=== PATIENT | male | born 1940 | race Caucasian/White ===

== ENCOUNTER 2017-03-23 08:54 | Observation (INO) | payer OTHER ==
[~2017-03-23] VITALS: Ht 167.6 cm; Wt 78.0 kg
--- NOTE | 2017-03-23 09:07 | ED CARDIAC/CP/PALPITATIONS ---
History of Present Illness General Chief Complaint: Chest Pain Stated Complaint: CP Source: patient, family, old records Exam Limitations: no limitations Allergies Coded Allergies: amoxicillin (Intermediate, RASH 03/23/17) Reconcile Medications Aspirin (Aspirin*) 81 MG TAB.CHEW 1 TAB PO DAILY HEART HEALTH (Reported) Atorvastatin Calcium 80 MG TABLET 1 TAB PO DAILY CHOLESTEROL (Reported) Metoprolol Succinate 50 MG TAB.ER.24H 1 TAB PO DAILY HEARTRATE (Reported) Omeprazole 20 MG CAPSULE.DR 1 TAB PO DAILY AC GERD Please stop taking this medication after 4weeks. Triage Note: 76 YEAR OLD MALE TO TRIAGE WITH COMPLAINTS OF DIFFUSE CP THAT STARTED AROUND 0430 THIS AM AND LASTED INTILL 7 AM, PT HAS HISTORY OF PR IN 2015 AND WAS CONCERNED, PAIN FREE AT THIS TIME AND DENIES SOB OR DIAPHORESIS AT TIME OF EPISODE. Triage Nurses Notes Reviewed? yes Onset: Abrupt Duration: hour(s): Timing: single episode today Quality/Severity: burning Location: substernal Activities at Onset: rest HPI: 76-year-old male with history of prior myocardial infarction status post stents in 2014 on aspirin 81 mg presents emergency department complaining of substernal chest pain beginning at 0400 this morning. Patient states that she woke up and began thinking about tasks to do today when chest pain onset began. Chest pain described as burning, substernal radiating to bilateral anterior chest. Patient states the chest pain resolves around 0700 on its own. He is currently chest pain-free. The patient had no associated dyspnea or nausea. Patient states that this chest pain feels more mild compared to his previous PR. The patient denies dyspnea, headache, abdominal pain, recent illness, fevers, chills, presyncope. (Tonya BETANCOURT,Evelin Estes) Vital Signs & Intake/Output Vital Signs & Intake/Output Vital Signs Date Time Temp Pulse Resp B/P B/P Pulse O2 O2 Flow FiO2 Mean Ox Delivery Rate 03/24 0941 72 110/70 03/24 0644 98.4 68 20 134/74 95 Room Air 03/23 2140 98.3 66 20 110/70 96 03/23 1949 68 122/88 ED Intake and Output 03/24 0000 03/23 1200 Intake Total 120 Output Total 400 Balance -280 Intake, Oral 120 Output, Urine 400 Patient 172 lb 172 lb Weight (Manjula ATWOOD,Desean Weiner) Past History Travel History Traveled to [place] past 21 day No Medical History Any Pertinent Medical History? see below for history Neurological: NONE EENT: NONE Cardiovascular: myocardial infarction Respiratory: NONE Gastrointestinal: NONE Hepatic: NONE Renal: NONE Musculoskeletal: NONE Psychiatric: NONE Endocrine: NONE Cancer(s): NONE Surgical History Surgical History: non-contributory Psychosocial History What is your primary language R[place]an Tobacco Use: Never used ETOH Use: denies use Illicit Drug Use: denies illicit drug use Family History Family History, If Any: FATHER, . Relation not specified for: *No pertinent family history Hx Contributory? No (Evelin Cantu) Review of Systems Review of Systems Constitutional: Reports: no symptoms. EENTM: Reports: no symptoms. Respiratory: Reports: no symptoms. Cardiovascular: Reports: see HPI. GI: Reports: no symptoms. Genitourinary: Reports: no symptoms. Musculoskeletal: Reports: no symptoms. Skin: Reports: no symptoms. Neurological/Psychological: Reports: no symptoms. Hematologic/Endocrine: Reports: no symptoms. Immunologic/Allergic: Reports: no symptoms. All Other Systems: Reviewed and Negative (Evelin Cantu) Physical Exam Physical Exam General Appearance: well developed/nourished, no apparent distress, alert, awake Head: atraumatic, normal appearance Eyes: Bilateral: normal appearance. Ears, Nose, Throat: hearing grossly normal Neck: normal inspection, supple, full range of motion Respiratory: normal breath sounds, no respiratory distress, lungs clear Cardiovascular: regular rate/rhythm Peripheral Pulses: 2+ radial (R), 2+ radial (L) Gastrointestinal: normal bowel sounds, soft, non-tender, no organomegaly Back: normal inspection, normal range of motion Extremities: normal inspection, normal range of motion, no edema Neurologic/Psych: awake, alert, oriented x 3, normal mood/affect Skin: intact, normal color, warm/dry Core Measures ACS in differential dx? Yes CVA/TIA Diagnosis No Sepsis Present: No Sepsis Focused Exam Completed? No (Evelin Cantu) Progress Differential Diagnosis: AMI, atrial fibrillation, CHF/pulm edema, costochondritis, hyperventilation, musculoskeletal pain, myocarditis, pericarditis, pneumonia, pneumothorax, pulmonary embolism, unstable angina, V- fib/V-Tach Diagnostic Imaging: Viewed by Me: Radiology Read. Discussed w/RAD: Radiology Read. CXR Impression: PATIENT: BISHOP EPPS PRESENT AGE: 76 PATIENT ACCOUNT NO: [id number] : 40 LOCATION: [facility] ORDERING PHYSICIAN: Evelin BETANCOURT SERVICE DATE: 03/23/17 EXAM TYPE: RAD - XRY-CHEST XRAY, TWO VIEWS EXAMINATION: XR CHEST CLINICAL INFORMATION: Chest pain. COMPARISON: Chest done on 10/02/2005. TECHNIQUE: 2 views of the chest were obtained. FINDINGS: Both lungs are symmetrically expanded and are clear. The cardiomediastinal silhouette is within normal limit. There is no pleural effusion or pneumothorax present. The visualized upper abdomen is unremarkable. There is no displaced rib fracture visualized. Mild multilevel degenerative spondylosis is seen in the spine. IMPRESSION: No acute cardiopulmonary disease. 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 DICTATED BY: Bear Gonzalez MD DATE/TIME DICTATED:03/23/171021 RAIL WASHER:PRESTON DATE/ TIME TRANSCRIBED:03/23/171021 CONFIDENTIAL, DO NOT COPY WITHOUT APPROPRIATE AUTHORIZATION. <Electronically signed in Other Vendor System> SIGNED BY: Bear Gonzalez MD 03/23/17 1030 Initial ED EKG: sinus rhythm @61bpm, LAD, nonspecific ST changes Prior EKG: changed (resolved ST elevation 11/19/14) (Tonya BETANCOURT,Evelin Estes) Plan of Care: Orders Procedure Date/time Status Discharge Patient 03/24 UNK Active Laboratory Tests 03/24/17 0720: Anion Gap 13, Estimated GFR > 60, BUN/Creatinine Ratio 17.8, CBC w Diff NO MAN DIFF REQ, RBC 4.40 L, MCV 93.4, MCH 30.6, MCHC 32.8 L, RDW 14.9 H, MPV 8.4, Gran % 64.8, Lymphocytes % 19.2 L, Monocytes % 13.2 H, Eosinophils % 2.4, Basophils % 0.4, Absolute Granulocytes 2.8, Absolute Lymphocytes 0.8 L, Absolute Monocytes 0.6, Absolute Eosinophils 0.1, Absolute Basophils 0 03/23/171: Troponin I 0.01 Patient's EKG is in sinus rhythm, no acute ST elevation. Troponin is negative. Patient has no chest pain currently at this time. The patient was seen and evaluated by qualifications examiner Jean-Pierre Patel MD. Given significant cardiac history with patient's risk factors the decision was made for telemetry observation to further rule out acute coronary syndrome. Dr. Fair present seen and evaluate patient as well who agrees with the plan. (Evelin Cantu) (Manjula ATWOOD,Desean Weiner) Departure Departure Disposition: STILL A PATIENT Condition: Stable Clinical Impression Primary Impression: Chest pain Qualifiers: Chest pain type: unspecified Qualified Code: R07.9 - Chest pain, unspecified Referrals: Shannan Villarreal MD (PCP/Family) Departure Forms: Customer Survey General Discharge Information Prescriptions: Current Visit Scripts Omeprazole 1 TAB PO DAILY AC #30 TAB Please stop taking this medication after 4weeks. Observation Note Spoke With: Ericka Mahan MD Physician Advisor Notified: DESEAN SKINNER DO Place Patient In: Non-ED OBS Care Area Rationale for Observation: My rational for observation is as follows [chest pain with significant medical history of prior myocardial infarction and risk factors including age requiring repeat EKGs and troponin, cardiology consult, premature discharge would be medically unsafe.]. (Evelin Cantu) PA/TRAVEL ATTENDANTS Co-Sign Statement Statement: ED Attending supervision documentation- [X] I saw and evaluated the patient. I have also reviewed all the pertinent lab results and diagnostic results. I agree with the findings and the plan of care as documented in the PA's/TRAVEL ATTENDANTS's documentation. Patient presents for evaluation of chest pain. Physical examination reveals a pleasant and comfortable appearing gentleman with an unremarkable physical examination. [] I have reviewed the ED Record and agree with the PA's/TRAVEL ATTENDANTS's documentation. [] Additions or exceptions (if any) to the PAs/TRAVEL ATTENDANTS's note and plan are summarized below: [] (Manjula ATWOOD,Desean Weiner) Critical Care Note Critical Care Note Critical Care Time: non-applicable (Evelin Cantu)
[2017-03-23 09:28] LABS: ABSOLUTE BASOPHIL COUNT 0 /CUMM (0.0-0.2); ABSOLUTE EOSINOPHIL COUNT 0.1 /CUMM (0.0-0.7); ABSOLUTE GRANULOCYTE CT 2.1 /CUMM (1.4-6.5); ABSOLUTE LYMPH COUNT 0.8 /CUMM (1.2-3.4); ABSOLUTE MONOCYTE COUNT 0.6 /CUMM (0.10-0.60); BASOPHIL % 0.4 % (0.0-2.0); EOSINOPHIL % 1.6 % (0-5); GRANULOCYTE % 60.1 % (42.2-75.2); HEMATOCRIT 41.8 % (42-52); MEAN CORPUSCULAR HGB 30.6 PG (27.0-31.0); MEAN CORPUSCULAR HGB CONC 33.1 G/DL (33.0-37.0); MEAN CORPUSCULAR VOLUME 92.5 FL (80.0-94.0); PLATELET COUNT 184 /CUMM (130-400); RBC DISTRIBUTION WIDTH 14.6 % (11.5-14.5); RED BLOOD CELL CT 4.51 /CUMM (4.70-6.10); WHITE BLOOD CELL COUNT 3.6 /CUMM (4.8-10.8)
--- NOTE | 2017-03-23 10:30 | RADIOLOGY REPORT ---
EXAMINATION: XR CHEST CLINICAL INFORMATION: Chest pain. COMPARISON: Chest done on 10/02/2005. TECHNIQUE: 2 views of the chest were obtained. FINDINGS: Both lungs are symmetrically expanded and are clear. The cardiomediastinal silhouette is within normal limit. There is no pleural effusion or pneumothorax present. The visualized upper abdomen is unremarkable. There is no displaced rib fracture visualized. Mild multilevel degenerative spondylosis is seen in the spine. IMPRESSION: No acute cardiopulmonary disease. 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
[2017-03-23] MEDS ORDERED: ATORVASTATIN CA80 M1 PO (11:11)
[2017-03-23] MEDS ORDERED: ASPIRIN81 M4 PO (11:11)
[2017-03-23] MEDS ORDERED: METOPROLOL SUCC50 M2 PO (11:12)
--- NOTE | 2017-03-23 12:44 | Cons- Cardiology ---
General Information and HPI Consulting Request Date of Consult: 03/23/17 Requested By: Dr. Fair Reason for Consult: Chest pain Primary band instrument maker: Dr. Perera Source of Information: patient, family, old records History of Present Illness: This is a very pleasant 76-year-old male with a past medical history of ST elevation myocardial infarction in 2014 for which he was transferred for emergent cardiac catheterization and underwent a drug-eluting stents to the left anterior descending artery. He has been in good health since that episode but this morning developed some intermittent sternal chest discomfort of mild intensity at rest without obvious exacerbating or alleviating factors; subsequently resolved on its own and not associated with any dyspnea or diaphoresis. He notes the severity of the discomfort is significantly less than his myocardial infarction in 2015 but there were some similarities to the quality. Denies any recent exertional symptoms. Denies any headache, slurring of speech, orthopnea, or paroxysmal nocturnal dyspnea. Denies any subjective fevers. Allergies/Medications Allergies: Coded Allergies: MDX - Amoxicillin (AMOXICILLIN) (Mild, RASH 11/19/14) Home Med List: Aspirin (Aspirin*) 81 MG TAB.CHEW 1 TAB PO DAILY HEART HEALTH (Reported) Atorvastatin Calcium 80 MG TABLET 1 TAB PO DAILY CHOLESTEROL (Reported) Metoprolol Succinate 50 MG TAB.ER.24H 1 TAB PO DAILY HEARTRATE (Reported) Review of Systems Review of Systems: Review of systems as per HPI. The remainder of a 10 point review of systems was reviewed and was otherwise negative. Past History Travel History Traveled to [place] past 21 day No Medical History Neurological: NONE EENT: NONE Cardiovascular: hyperlipidemia, myocardial infarction Respiratory: NONE Gastrointestinal: NONE Hepatic: NONE Renal: NONE Musculoskeletal: NONE Psychiatric: NONE Endocrine: NONE Cancer(s): NONE Surgical History Surgical History: non-contributory Family History Relations & Conditions If Any: FATHER, . Relation not specified for: *No pertinent family history Psychosocial History ETOH Use: denies use Illicit Drug Use: denies illicit drug use Exam & Diagnostic Data Vital Signs and I&O Vital Signs Date Time Temp Pulse Resp B/P B/P Pulse O2 O2 Flow FiO2 Mean Ox Delivery Rate 03/23 1221 97.0 69 20 147/83 98 Room Air 03/23 1043 96.2 70 20 143/80 98 Room Air 03/23 0903 97.9 68 16 148/88 98 Room Air Intake & Output 03/23 1600 03/23 0800 01/26 0000 03/22 1600 03/22 0800 03/22 0000 Intake Total Output Total Balance Patient 172 lb Weight Physical Exam: General: no apparent distress. Alert. Eyes: No obvious scleral icterus. HEENT: No jugular venous distention or abnormal jugular venous pulsations. Cardiovascular: Normal intensity S1/S2. PMI not grossly displaced. Respiratory: Lungs clear to auscultation bilaterally. Abdomen: Soft, nontender with no guarding or rebound tenderness. Musculoskeletal: No clubbing or cyanosis noted Skin: No obvious rashes or ulcerations. Neurologic: No gross focal deficits noted. Lymph: No gross lymphadenopathy. Labs/Kristofer Results: Laboratory Tests 03/23 920 Chemistry Sodium (137 - 145 mmol/L) 143 Potassium (3.5 - 5.1 mmol/L) 4.5 Chloride (98 - 107 mmol/L) 104 Carbon Dioxide (22 - 30 mmol/L) 26 Anion Gap (5 - 16) 13 BUN (9 - 20 mg/dL) 18 Creatinine (0.7 - 1.2 mg/dL) 0.9 Estimated GFR (>60 ml/min) > 60 BUN/Creatinine Ratio (7 - 25 %) 20.0 Glucose (65 - 99 mg/dL) 107 H Calcium (8.4 - 10.2 mg/dL) 9.3 Magnesium (1.6 - 2.3 mg/dL) 2.1 Total Bilirubin (0.2 - 1.3 mg/dL) 0.2 AST (17 - 59 U/L) 37 ALT (21 - 72 U/L) 28 Alkaline Phosphatase (< 127 U/L) 87 Troponin I (<0.11 ng/ml) < 0.01 Total Protein (6.3 - 8.2 g/dL) 7.4 Albumin (3.5 - 5.0 g/dL) 4.0 Globulin (1.9 - 4.2 gm/dL) 3.4 Albumin/Globulin Ratio (1.1 - 2.2 %) 1.2 Hematology CBC w Diff NO MAN DIFF REQ WBC (4.8 - 10.8 /CUMM) 3.6 L RBC (4.70 - 6.10 /CUMM) 4.51 L Hgb (14.0 - 18.0 G/DL) 13.8 L Hct (42 - 52 %) 41.8 L MCV (80.0 - 94.0 FL) 92.5 MCH (27.0 - 31.0 PG) 30.6 MCHC (33.0 - 37.0 G/DL) 33.1 RDW (11.5 - 14.5 %) 14.6 H Plt Count (130 - 400 /CUMM) 184 MPV (7.4 - 10.4 FL) 8.0 Gran % (42.2 - 75.2 %) 60.1 Lymphocytes % (20.5 - 51.1 %) 21.6 Monocytes % (1.7 - 9.3 %) 16.3 H Eosinophils % (0 - 5 %) 1.6 Basophils % (0.0 - 2.0 %) 0.4 Absolute Granulocytes (1.4 - 6.5 /CUMM) 2.1 Absolute Lymphocytes (1.2 - 3.4 /CUMM) 0.8 L Absolute Monocytes (0.10 - 0.60 /CUMM) 0.6 Absolute Eosinophils (0.0 - 0.7 /CUMM) 0.1 Absolute Basophils (0.0 - 0.2 /CUMM) 0 Diagnostic Data EKG Results Tracing was personally reviewed and shows sinus rhythm with left axis deviation and no obvious ST elevation or ST depression CXR Results No acute cardiopulmonary disease. 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 Assessment/Plan Assessment/Plan 1. Chest pain, now resolved 2. History of ST elevation myocardial infarction in 2014 with a drug-eluting stent placed to the LAD The patient's chest discomfort has resolved but given his history of a prior ST elevation myocardial infarction would recommend obtaining serial troponins and monitoring on telemetry for now. Current EKG shows no active ischemia so I would not initiate intravenous heparin at this time. He is currently hemodynamically stable. If he has no recurrent chest pain and his troponins are negative with no significant arrhythmias on telemetry he can likely be discharged with a consideration for possible outpatient stress testing. He should follow-up in our office within one week of discharge but if any recurrent symptoms after discharge he is instructed to return to the emergency room via 911. Sandip Patel MD [facility] Consult Acknowledgment - Thank you for your consult request.
--- NOTE | 2017-03-23 13:45 | History & Physical ---
Gurjit Lopez 03/23/17 1345: General Information and HPI MD Statement: I have seen and personally examined BISHOP EPPS and documented this H&P. The patient is a 76 year old M who presented with a patient stated chief complaint of chest pain. Source of Information: patient, family, old records Exam Limitations: no limitations History of Present Illness: This is a 75-year-old patient with past medical history significant for hyperlipidemia, coronary artery disease, status post STEMI in 2015 status post cardiac cath at [facility] and stent placement of left anterior descending artery status post treatment with the dual antiplatelet for 1 year presented to the ER for evaluation of chest pain for few hours. Patient reports sudden onset of chest pain 4.30 this morning , 3 x 10, burning sensation, not radiating to arm, shoulder. He was resting at that time. He denied any palpitations, short of breath, diaphoresis, nausea, vomiting, sweating. Initially he felt heartburn from indigestion associated with burping. However he continued to have chest pain until 7 AM, relieved by its own. He denied taking any nitroglycerin for chest pain. He felt that chest pain resembled mostly like his prior FL in 2014 which made him to come to the emergency room for further evaluation. His past medical history significant for hyperlipidemia, coronary artery disease status post FL 2014 and stent placement. He takes baby aspirin, Lipitor 80 mg, metoprolol 50 daily. Denies any specific allergies. Social history-denies smoking, illicit drug abuse, alcohol abuse. Family history significant for stroke and heart attack in his father after 50 years. He is independent and takes care of himself. He is pretty active with all household activities. Allergies/Medications Allergies: Coded Allergies: amoxicillin (Intermediate, RASH 03/23/17) Compliance With Home Meds: GOOD Past History Travel History Traveled to [place] past 21 day No Medical History Neurological: NONE EENT: NONE Cardiovascular: hyperlipidemia, myocardial infarction Respiratory: NONE Gastrointestinal: NONE Hepatic: NONE Renal: NONE Musculoskeletal: NONE Psychiatric: NONE Endocrine: NONE Cancer(s): NONE Surgical History Surgical History: non-contributory Past Family/Social History Family History Relations & Conditions if any FATHER, . Relation not specified for: *No pertinent family history Psychosocial History Smoking Status: Never Smoked ETOH Use: denies use Illicit Drug Use: denies illicit drug use Review of Systems Review of Systems Constitutional: Denies: chills, diaphoresis, fever, malaise, weakness, unexplained weight loss. EENTM: Denies: blurred vision, double vision, visual changes, eye pain, eye drainage, eye tearing, ear discharge, ear pain. Cardiovascular: Reports: chest pain. Denies: edema, orthopena, palpitations, peripheral edema, syncope. Respiratory: Denies: cough, hemoptysis, orthopnea, short of breath, sputum production, wheezing. GI: Denies: abdominal pain, bloating, constipation, diarrhea. Genitourinary: Denies: discharge, dysuria, frequency. Musculoskeletal: Denies: back pain, gout, joint pain. Skin: Denies: cysts, jaundice, lesions. Neurological/Psychological: Denies: anxiety, ataxia, confusion, depressed, headache, numbness, paresthesia. Exam & Diagnostic Data Last 24 Hrs of Vital Signs/I&O Vital Signs Date Time Temp Pulse Resp B/P B/P Pulse O2 O2 Flow FiO2 Mean Ox Delivery Rate 03/23 1351 97.8 65 20 124/70 96 Room Air 03/23 1327 68 20 124/62 98 Room Air 03/23 1221 97.0 69 20 147/83 98 Room Air 03/23 1043 96.2 70 20 143/80 98 Room Air 03/23 0903 97.9 68 16 148/88 98 Room Air Intake & Output 03/23 1600 03/23 0800 03/23 0000 Intake Total Output Total Balance Patient 78.018 kg Weight Physical Exam General Appearance Alert, Oriented X3, Cooperative, No Acute Distress Skin No Rashes, No Breakdown, No Significant Lesion Skin Temp/Moisture Exam: Warm/Dry Sepsis Skin Exam (color): Normal for Ethnicity HEENT Atraumatic, PERRLA, EOMI, Mucous Membr. moist/pink Neck Supple, No JVD, No thryomegaly Lymphatic Axillary nl, Cervical nl Cardiovascular Regular Rate, Normal S1, Normal S2, No Murmurs Lungs Normal Air Movement Abdomen Normal Bowel Sounds, Soft, No Tenderness Neurological Normal Gait, Normal Speech, Strength at 5/5 X4 Ext, Normal Tone, Sensation Intact, Cranial Nerves 3-12 NL, Reflexes 2+ Extremities No Clubbing, No Cyanosis, No Edema, Normal Pulses, No Tenderness/ Swelling Vascular Normal Pulses, Pulses Symmetrical Last 24 Hrs of Labs/Kristofer: Laboratory Tests 03/23/17 0921: Anion Gap 13, Estimated GFR > 60, BUN/Creatinine Ratio 20.0, Glucose 107 H, Calcium 9.3, Magnesium 2.1, Total Bilirubin 0.2, AST 37, ALT 28, Alkaline Phosphatase 87, Troponin I < 0.01, Total Protein 7.4, Albumin 4.0, Globulin 3.4, Albumin/Globulin Ratio 1.2, CBC w Diff NO MAN DIFF REQ, RBC 4.51 L, MCV 92.5, MCH 30.6, MCHC 33.1, RDW 14.6 H, MPV 8.0, Gran % 60.1, Lymphocytes % 21.6, Monocytes % 16.3 H, Eosinophils % 1.6, Basophils % 0.4, Absolute Granulocytes 2.1, Absolute Lymphocytes 0.8 L, Absolute Monocytes 0.6, Absolute Eosinophils 0.1, Absolute Basophils 0 Diagnostic Data EKG Results Tracing was personally reviewed and shows sinus rhythm with left axis deviation and no obvious ST elevation or ST depression CXR Results No acute cardiopulmonary disease. 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 Assessment/Plan Assessment: This is a 75-year-old patient with past medical history significant for hyperlipidemia, coronary artery disease, status post STEMI in 2015 status post cardiac cath at [facility] and stent placement of left anterior descending artery status post treatment with the dual antiplatelet for 1 year presented to the ER for evaluation of chest pain for few hours. Vitals at the time of presentation afebrile, heart rate 68, respiratory rate 20, blood pressure 148/88, saturating at 98 on room air. Pertinent labs CBCs and BEP normal LFT normal Troponin normal chest x-ray was normal EKG showed sinus rhythm, rate 67, no ST elevation or depressions, no new T-wave inversions, left axis deviation, old anterior infarct. Assessment and plan 76-year-old with past medical history significant for hyperlipidemia, history of ST elevation myocardial infarction in 2015 with drug eluting stent placed in LAD presented with an episode of chest pain. Patient is hemodynamically stable. Labs were completely normal. Initial set of troponin was negative. EKG showed sinus rhythm, no ST elevation or depression, left axis deviation with old anterior infarct changes. Given his recent history of myocardial infarction Will place him under observation in the telemetry floor for continuous monitoring. INDIO score-age greater than 65, aspirin use within the last 7 days-patient has 8.3% risk of all cause mortality from new or recurrent FL. * Place him under observation in the telemetry floor * Continuous telemetry monitoring * Monitor vitals every shift * Will obtain serial troponin and EKG * Cardiology was consulted * We'll treat him for unstable angina given no troponin elevation and no EKG changes * No need for IV heparin now * We will monitor him overnight * Patient needs outpatient stress testing and follow-up with his tool maintenance worker * Continue baby aspirin 81 mg daily * Continue Lipitor 80 mg daily * Continue home dose of metoprolol 50 mg daily Heartburn Patient reports history of heartburn,, taking Tums at home. Will provide omeprazole in the hospital. Hyperlipidemia Continue atorvastatin 80 mg daily DVT prophylaxis subcutaneous Lovenox Full code Regular diet Pain pathway-Tylenol As Ranked By This Provider Problem List: 1. Chest pain Qualifiers Chest pain type: unspecified Qualified Code: R07.9 - Chest pain, unspecified Core Measures/Misc (11/12) Acute Coronary Syndrome ACS Diagnosis: No Congestive Heart Failure Congestive Heart Failure Diagnosis No Cerebrovascular Accident CVA/TIA Diagnosis: No VTE (View Protocol) VTE Risk Factors No risk factors No Mechanical VTE Prophylaxis d/t N/A MechProphylax Ordered No VTE Pharm Prophylaxis d/t NA PharmProphylax ordered Sepsis (View protocol) Sepsis Present: No Ivana Daniel MD 03/23/17 1525: General Information and HPI Allergies/Medications Home Med list Aspirin (Aspirin*) 81 MG TAB.CHEW 1 TAB PO DAILY HEART HEALTH (Reported) Atorvastatin Calcium 80 MG TABLET 1 TAB PO DAILY CHOLESTEROL (Reported) Metoprolol Succinate 50 MG TAB.ER.24H 1 TAB PO DAILY HEARTRATE (Reported) Omeprazole 20 MG CAPSULE.DR 40 MG PO DAILY AC GERD Attending MD Review Statement Attending Statement Attending MD Statement: examined this patient, discuss w/resident/PA/ADVERTISING SALES EXECUTIVE, agreed w/resident/PA/ADVERTISING SALES EXECUTIVE, reviewed EMR data (avail), discussed with nursing, amended to note Attending Assessment/Plan: Patient is a very pleasant 76-year-old male with history of coronary artery disease who presents with complaints of atypical chest pain. He reports having similar pain on and off in the past mostly after eating certain meals. Pain is not related to activity. Reports that the pain is similar to when he had his myocardial infarction 2014 but less intense so he came to the emergency room for evaluation. EKG shows sinus rhythm with no ischemic changes. Facet of troponin is negative. On examination he is quite comfortable and not in any distress. Heart sounds are regular with no audible murmur. Lungs are clear to auscultation bilaterally. Abdomen is soft and nontender and he has no peripheral edema. Recommendations: -Observe on the telemetry unit for the next 24 hours. -If cardiac enzymes remain negative and symptoms are resolved he may be discharged home to follow-up with his tool maintenance worker service as an outpatient. Outpatient stress test will be scheduled by his tool maintenance worker service. -Recommend addition of a proton pump inhibitor to his regimen.
[2017-03-23 13:51] VITALS: BP 124/70
[2017-03-23] MEDS ORDERED: OMEPRAZOLE20 M2 PO (14:33)
--- NOTE | 2017-03-23 14:35 | Patient Discharge Instructions ---
Discharge Instructions General Discharge Information You were seen/treated for: CHEST PAIN Special Instructions: Follow-up with PCP in one week after discharge Follow-up with rn family practice within 1 week after discharge. Call 911 if any recurrent symptoms after discharge Consider following up with hose turner after discharge regarding heartburn. Diet Continue normal diet: Yes Activity Full Activity/No Limits: Yes Acute Coronary Syndrome Inclusion Criteria At DC or during hospital stay patient has or had the following: ACS DIAGNOSIS No Discharge Core Measures Meds if any: Prescribed or Continued at Discharge Meds if any: NOT Prescribed or Continued at Discharge Congestive Heart Failure Inclusion Criteria At DC or during hospital stay patient has or had the following: CHF DIAGNOSIS No Discharge Core Measures Meds if any: Prescribed or Continued at Discharge Meds if any: NOT Prescribed or Continued at Discharge Cerebrovascular accident Inclusion Criteria At DC or during hospital stay patient has or had the following: CVA/TIA Diagnosis No Discharge Core Measures Meds if any: Prescribed or Continued at Discharge Meds if any: NOT Prescribed or Continued at Discharge Venous thromboembolism Inclusion Criteria VTE Diagnosis No VTE Type NONE VTE Confirmed by (Test) NONE Discharge Core Measures - Per Current guidelines, there needs to be overlap - treatment for the first 5 days of Warfarin therapy. - If discharged on Warfarin prior to 5 days of - overlap therapy, the patient will need to be - assessed for post discharge needs including - *Post discharge parental anticoagulation - *Warfarin and/or parental anticoagulation education - *Follow up date to check INR post discharge At least 5 days overlap therapy as Inpatient No Meds if any: Prescribed or Continued at Discharge Note: Overlap Therapy is Warfarin and Anticoagulant Meds if any: NOT Prescribed or Continued at Discharge
[2017-03-23 21:40] VITALS: BP 110/70
[2017-03-24 06:44] VITALS: BP 134/74
[2017-03-24 08:13] LABS: ABSOLUTE BASOPHIL COUNT 0 /CUMM (0.0-0.2); ABSOLUTE EOSINOPHIL COUNT 0.1 /CUMM (0.0-0.7); ABSOLUTE GRANULOCYTE CT 2.8 /CUMM (1.4-6.5); ABSOLUTE LYMPH COUNT 0.8 /CUMM (1.2-3.4); ABSOLUTE MONOCYTE COUNT 0.6 /CUMM (0.10-0.60); BASOPHIL % 0.4 % (0.0-2.0); EOSINOPHIL % 2.4 % (0-5); GRANULOCYTE % 64.8 % (42.2-75.2); HEMATOCRIT 41.1 % (42-52); MEAN CORPUSCULAR HGB 30.6 PG (27.0-31.0); MEAN CORPUSCULAR HGB CONC 32.8 G/DL (33.0-37.0); MEAN CORPUSCULAR VOLUME 93.4 FL (80.0-94.0); MEAN PLATELET VOLUME 8.4 FL (7.4-10.4); PLATELET COUNT 178 /CUMM (130-400); RBC DISTRIBUTION WIDTH 14.9 % (11.5-14.5); WHITE BLOOD CELL COUNT 4.4 /CUMM (4.8-10.8)
--- NOTE | 2017-03-24 09:26 | PN-Observation ---
Observation Note Observation Note _ I have personally examined BISHOP EPPS. him disposition is uncertain at this time. Before a determination can be made, he requires continued observation for the following reasons chest pain. Assessment/Plan Assessment: This is a 75-year-old patient with past medical history significant for hyperlipidemia, coronary artery disease, status post STEMI in 2015 status post cardiac cath at [facility] and stent placement of left anterior descending artery status post treatment with the dual antiplatelet for 1 year presented to the ER for evaluation of chest pain for few hours. Vitals at the time of presentation afebrile, heart rate 68, respiratory rate 20, blood pressure 148/88, saturating at 98 on room air. Pertinent labs CBCs and BEP normal LFT normal Troponin normal chest x-ray was normal EKG showed sinus rhythm, rate 67, no ST elevation or depressions, no new T-wave inversions, left axis deviation, old anterior infarct. Patient was placed under observation in telemetry floor for management of following conditions: Assessment and plan 76-year-old with past medical history significant for hyperlipidemia, history of ST elevation myocardial infarction in 2014 with drug eluting stent placed in LAD presented with an episode of chest pain. Patient was hemodynamically stable. Labs were completely normal. Troponin levels were negative. EKG showed sinus rhythm, no ST elevation or depression, left axis deviation with old anterior infarct changes. Given his recent history of myocardial infarction was placed under observation in the telemetry floor for continuous monitoring. INDIO score-age greater than 65, aspirin use within the last 7 days-patient has 8.3% risk of all cause mortality from new or recurrent [place]. Monitoring overnight did not reveal any arrhythmias, patients doesn't have any chest pain, serial troponins and EKGs were negative. Cardiology was consulted who cleared him to be discharged with follow-up in outpatient for stress test. During admission aspirin and Lipitor and home dose of metoprolol were continued. Patient was planned to be discharged today as noted above. Heartburn Patient reports history of heartburn and bloating taking Tums at home. We had discussion with patient regarding following up with PCP to rule out more serious pathologies, meanwhile we administered 4 week period of PPI. Hyperlipidemia We continue atorvastatin 80 mg daily DVT prophylaxis subcutaneous Lovenox Full code Regular diet Pain pathway-Tylenol Problem List: 1. Chest pain Qualifiers Chest pain type: unspecified Qualified Code: R07.9 - Chest pain, unspecified Plan: As noted above DVT/Prophylaxis: mechanical, pharmacological Consulting Request: Consulting Specialty: Cardiology Discharge Plan Discharge Disposition: home Stable for Discharge? Yes Anticipated Discharge (Day): today Subjective Follow-up For: Chest pain Tele-Events Since Last Visit: Sb NSR, 59-61 PVCs Subjective: Patient visited today, was lying in bed comfortably in no acute distress, was alert and oriented. Didn't reported any chest pain, but reported bloating. No fever or chills, no shortness of breathing, no chest pain, no other events. Was planned to be discharged today on omeprazole and recommendation to follow as noted. Review of Systems Constitutional: Denies: see HPI. Objective Last 24 Hrs of Vital Signs/I&O Vital Signs Date Time Temp Pulse Resp B/P B/P Pulse O2 O2 Flow FiO2 Mean Ox Delivery Rate 03/24 0941 72 110/70 03/24 0644 98.4 68 20 134/74 95 Room Air 03/23 2140 98.3 66 20 110/70 96 03/23 1949 68 122/88 Intake & Output 03/24 1600 03/24 0800 03/24 0000 Intake Total 110 120 Output Total 400 Balance 110 -280 Intake, IV 10 Intake, Oral 100 120 Output, Urine 400 Physical Exam General Appearance: Alert, Oriented X3, Cooperative, No Acute Distress Skin: No Significant Lesion Skin Temp/Moisture Exam: Warm/Dry Sepsis Skin Exam (color): Normal for Ethnicity HEENT: Atraumatic, EOMI, Mucous Membr. moist/pink Cardiovascular: Regular Rate, Normal S1, Normal S2 Lungs: Clear to Auscultation Abdomen: Soft, No Tenderness Neurological: Normal Speech Extremities: No Edema Current Medications: Current Medications Sig/Joby Start time Last Medication Dose Route Stop Time Status Admin Acetaminophen 650 MG Q6P PRN 03/23 1400 DCD PO Aspirin 81 MG DAILY 03/23 1359 DCD 03/24 PO 0939 Atorvastatin Calcium 80 MG 1700 03/23 1700 DCD 03/23 PO 1947 Enoxaparin Sodium 40 MG DAILY 03/23 1357 DCD 03/24 SC 0941 Metoprolol Succinate 50 MG DAILY 03/23 1400 DCD 03/24 PO 0941 Omeprazole 40 MG DAILY AC 03/23 1414 DCD 03/24 PO 0538 Last 24 Hrs of Labs/Mics: Laboratory Tests 03/24/17 0720: Anion Gap 13, Estimated GFR > 60, BUN/Creatinine Ratio 17.8, CBC w Diff NO MAN DIFF REQ, RBC 4.40 L, MCV 93.4, MCH 30.6, MCHC 32.8 L, RDW 14.9 H, MPV 8.4, Gran % 64.8, Lymphocytes % 19.2 L, Monocytes % 13.2 H, Eosinophils % 2.4, Basophils % 0.4, Absolute Granulocytes 2.8, Absolute Lymphocytes 0.8 L, Absolute Monocytes 0.6, Absolute Eosinophils 0.1, Absolute Basophils 0 03/23/171: Troponin I 0.01
[2017-03-24 09:41] VITALS: BP 110/70
[2017-03-24] MEDS ORDERED: OMEPRAZOLE20 M2 PO (09:50)
--- NOTE | 2017-03-24 15:32 | PN- Att Addend ---
Attending MD Review Statement Attending Statement Attending MD Statement: examined this patient, discuss w/resident/PA/FIRE CAPTAIN, agreed w/resident/PA/FIRE CAPTAIN, reviewed EMR data (avail), discussed w/nursing Attending Assessment/Plan: Pt presented with chest pain. EKG - no acute changes. Trop times 3 negative. pt seen by cardiology and given his prior h/o STEMI with Stent in 2014 he is going to f/u with cardiology to decide on outpatient stress test. Pt was instructed to come back to ER in case he gets recurrent chest pain or other symptoms of heart disease. Pt will be dced home in stable condition.
== END 2017-03-24 12:45 ==
LOC: ERH 08:54 → ERHI 12:09 → 1NO 12:09 → ENTRNSPT 13:13 → EDTRNSPTSTS 13:20 → EDTRNSPT 13:20 → 1NO 13:32 → CMPTRNSPT 13:46 → ENPENDDIS 03-24 09:50 → 1NO 03-24 10:35
PROVIDERS: Hospitalist; Physician Assistant
DX: R07.9 Chest pain, unspecified (principal); E78.5 Hyperlipidemia, unspecified; I25.10 Atherosclerotic heart disease of native coronary artery without angina pectoris; I21.9 Acute myocardial infarction, unspecified; Z95.5 Presence of coronary angioplasty implant and graft; R12 Heartburn
CPT/HCPCS: 6020; 36415; 71046; 82436; 93005; 93010; 96372; G0378; J1650; J3490